=== PATIENT | male | born 1985 ===

== ENCOUNTER 2017-12-23 16:37 | Inpatient (IN) | payer SELFPAY ==
[2017-12-23 16:51] VITALS: BMI 43.5
[2017-12-23 17:33] LABS: ARTERIAL BLOOD GAS HCO3 25.3 mmol/L (21-28); ARTERIAL BLOOD GAS HEMOGLOBIN 14.9 g/dL (11.7-17.4); ARTERIAL BLOOD GAS O2 CAPACITY 20.3 mL/dl (16-24); ARTERIAL BLOOD GAS O2 CONTENT 20.2 ML/dl (15-23); ARTERIAL BLOOD GAS O2 SAT 99.4 % (95-98); ARTERIAL BLOOD GAS PCO2 31 mm/Hg (35-45); ARTERIAL BLOOD GAS PH 7.52 (7.35-7.45); ARTERIAL BLOOD GAS TCO2 26.3 mmol.L (22-28)
[2017-12-23 18:12] LABS: GRAN # 15.28 (1.4-6.5); GRAN % 93.2 % (50.0-68.0); HEMOGLOBIN 14.8 g/dL (14.0-18.0); LYMPH # 0.6 (1.2-3.4); LYMPH % 3.4 % (22.0-35.0); MEAN CELL VOLUME 93.2 fl (80.0-105.0); MEAN CORPUSCULAR HEMOGLOBIN 32.2 pg (25.0-35.0); MEAN CORPUSCULAR HGB CONC 34.6 g/dl (31.0-37.0); MEAN PLATELET VOLUME 10.3 fl (7.0-11.0); MONO # 0.6 (0.1-0.6); MONO % 3.4 % (1.0-6.0); PLATELET COUNT 252 10^3/uL (120.0-450.0); RBC 4.59 10^6/uL (3.5-6.1); WHITE BLOOD COUNT 16.4 10^3/uL (4.5-11.0)
--- NOTE | 2017-12-23 18:23 | RAD ---
Date of service: 12/23/2017 HISTORY: dyspnea COMPARISON: No prior. FINDINGS: LUNGS: No active pulmonary disease. PLEURA: No significant pleural effusion identified, no pneumothorax apparent. CARDIOVASCULAR: No atherosclerotic calcification present Normal. OSSEOUS STRUCTURES: No significant abnormalities. VISUALIZED UPPER ABDOMEN: Normal. OTHER FINDINGS: None. IMPRESSION: No active disease.
--- NOTE | 2017-12-23 18:24 | ED PDOC ---
Arrival/HPI - General Chief Complaint: Medical Clearance Time Seen by Provider: 12/23/17 16:47 Historian: Patient - History of Present Illness Narrative History of Present Illness (Text): 12/23/17 17:06 32 year old male, with past medical history of asthma, presents to the ED complaining of SOB, bilateral upper extremity 5th digit numbness and sweatiness, and bilateral lower extremity cramping since waking up this morning. Patient informs feeling anxious but denies ever having panic attacks or being clinically diagnosed with any psychiatric history. Patient denies any other associated somatic complaints. Patient denies any fever, chills, chest pain, cough, leg swelling, neck pain, back pain or any other complaints. Patient denies any recent trauma/inujury or any recent procedure. Patient denies any recent travel or sick contact. Patient denies any drug use. Time/Duration: 4-6 hours Symptom Onset: Gradual Symptom Course: Unchanged Activities at Onset: Light Context: Home Past Medical History - Provider Review Nursing Documentation Reviewed: Yes - Cardiac Hx Cardiac Disorders: No - Pulmonary Hx Asthma: Yes - Neurological Hx Neurological Disorder: No - HEENT Hx HEENT Disorder: No - Renal Hx Renal Disorder: No - Endocrine/Metabolic Hx Endocrine Disorders: No - Hematological/Oncological Hx Blood Disorders: No - Integumentary Hx Dermatological Disorder: No - Musculoskeletal/Rheumatological Hx Musculoskeletal Disorders: No - Gastrointestinal Hx Gastrointestinal Disorders: No - Genitourinary/Gynecological Hx Genitourinary Disorders: No - Psychiatric Hx Psychophysiologic Disorder: No Hx Substance Use: No Family/Social History - Physician Review Nursing Documentation Reviewed: Yes Family/Social History: Unknown Family HX Smoking Status: Never Smoked Hx Alcohol Use: No Hx Substance Use: No Allergies/Home Meds Allergies/Adverse Reactions: Allergies No Known Allergies Allergy (Verified 12/23/17 16:52) Home Medications: Home Meds Medication Instructions Recorded Confirmed Albuterol/Ipratropium [Duoneb 3 1 ea IH DAILY 12/23/17 12/23/17 MG/3 Ml-0.5 MG/3 Ml 3 Ml] Review of Systems - Physician Review All systems were reviewed & negative as marked: Yes - Review of Systems Respiratory: SOB. absent: Cough Cardiovascular: absent: Chest Pain, Edema Musculoskeletal: absent: Neck Pain Physical Exam - Physical Exam Narrative Physical Exam (Text): 11/15/18 17:06 Constitutional: Anxious appearing. Head: Normocephalic. Atraumatic. Eyes: PERRL. ENT: Moist mucous membranes. Neck: Supple. Cardiovascular: Regular rate. Chest: No tenderness. Respiratory: Clear to auscultation bilaterally. GI: Soft. Nontender. Nondistended. Back: No CVA tenderness. Musculoskeletal: No asymmetrical edema. Skin: No rash. Neurologic: Alert, no focal deficit. Vital Signs Reviewed: Yes Vital Signs Temp Pulse Resp BP Pulse Ox 12/23/17 17:06 98.6 F 116 H 17 144/89 98 Temperature: Afebrile Blood Pressure: Normal Pulse: Tachycardic Respiratory Rate: Normal Appearance: Positive for: Non-Toxic, Comfortable, Other (Anxious-appearing) Pain Distress: None Mental Status: Positive for: Alert and Oriented X 3 Medical Decision Making ED Course and Treatment: 12/23/17 17:06 Impression: 32 year old male presents to the ED complaining of SOB. Plan: -- ABG -- EKG -- Labs -- CXR -- UA Progress Notes: 12/23/17 17:06 EKG reviewed, shows sinus tachycardia at 104 bpm, no ST elevation, normal axis, T-wave inversions laterally. CXR reviewed, shows no acute disease. 12/23/17 20:17 Troponin detectable at 0.04. D dimer negative. WBC elevated. Dr. Perez accepts patient to hospitalist service. ASA administered. - Lab Interpretations Lab Results: 12/23/17 17:52 Lab Results 12/23/17 17:52: WBC 16.4 H, RBC 4.59, Hgb 14.8, Hct 42.8, MCV 93.2, MCH 32.2, MCHC 34.6, RDW 13.0, Plt Count 252, MPV 10.3, Gran % 93.2 H, Lymph % (Auto) 3.4 L, [place] % (Auto) 3.4, Eos % (Auto) 0.0 L, Baso % (Auto) 0.0, Gran # 15.28 H, Lymph # (Auto) 0.6 L, [place] # (Auto) 0.6, Eos # (Auto) 0.0, Baso # (Auto) 0.00, Neutrophils % (Manual) Pending, Lymphocytes % (Manual) Pending, Monocytes % (Manual) Pending 12/23/17 17:00: pCO2 31 L, pO2 82.0, HCO3 25.3, ABG pH 7.52 H, ABG Total CO2 26.3, ABG O2 Saturation 99.4 H, ABG O2 Content 20.2, ABG Base Excess 3.2 H, ABG Hemoglobin 14.9, ABG Carboxyhemoglobin 2.2 H, POC ABG HHb (Measured) 0.6, ABG Me themoglobin 1.1, ABG O2 Capacity 20.3, Hgb O2 Saturation 96.1, FiO2 21.0 - RAD Interpretation Radiology Orders: 12/23/17 17:06 CHEST PORTABLE [RAD] Stat Recreation Facility Attendant: ED Physician - EKG Interpretation Interpreted by ED Physician: Yes Type: 12 lead EKG - Scribe Statement The provider has reviewed the documentation as recorded by the Scribe Manuel Dobbs. All medical record entries made by the Scribe were at my direction and personall y dictated by me. I have reviewed the chart and agree that the record accurately reflects my personal performance of the history, physical exam, medical decision making, and the department course for this patient. I have also personally directed, reviewed, and agree with the discharge instructions and disposition. Disposition/Present on Arrival - Present on Arrival Any Indicators Present on Arrival: No History of DVT/PE: No History of Uncontrolled Diabetes: No Urinary Catheter: No History of Decub. Ulcer: No History Surgical Site Infection Following: None - Disposition Have Diagnosis and Disposition been Completed?: Yes Diagnosis: Dyspnea, Acute electrocardiogram changes Disposition: HOSPITALIZED Disposition Time: 20:18 Patient Plan: Observation, Telemetry Condition: STABLE Forms: Contentful ([place])
[2017-12-23 18:28] LABS: PH,URINE 7.5 (4.7-8.0); URINE BILIRUBIN NEGATIVE (NEGATIVE); URINE BLOOD TRACE-INTACT (NEGATIVE); URINE GLUCOSE (UA) NEGATIVE (NEGATIVE); URINE LEUKOCYTE ESTERASE NEGATIVE Leu/uL (NEGATIVE); URINE PROTEIN TRACE mg/dL (<30 mg/dL); URINE UROBILINOGEN 0.2 E.U./dL (<1 E.U./dL)
[2017-12-23 18:30] LABS: URINE APPEARANCE SL CLOUDY (CLEAR); URINE COLOR YELLOW (YELLOW)
[2017-12-23 18:37] LABS: URINE RBC 0 - 2 /hpf (0-2); URINE WBC NEGATIVE /hpf (0-6)
--- NOTE | 2017-12-23 18:43 | CARD ---
APPROVED REPORT Date of service: 12/23/2017 EKG Measurement Heart [id number] <Conclusion> Sinus tachycardia T wave abnormality, consider inferolateral ischemia Abnormal ECG
[2017-12-23 18:47] LABS: BAND 1 % (0-2); LYMPHOCYTE 1 % (22.0-35.0); MONOCYTE 4 % (1.0-6.0); NEUTROPHIL 94 % (50.0-70.0)
[2017-12-23 18:48] LABS: PLATELET ESTIMATE NORMAL (NORMAL)
[2017-12-23 19:12] LABS: ALB/GLOB RATIO 1.2 (1.1-1.8); ALBUMIN 4.3 g/dL (3.0-4.8); ALT/SGPT 32 U/L (7-56); AST/SGOT 24 U/L (17-59); BLOOD UREA NITROGEN 12 mg/dL (7-21); CALCIUM 9.4 mg/dL (8.4-10.5); GFR NON-AFRICAN AMERICAN > 60
[2017-12-23 19:18] LABS: TROPONIN I 0.04 ng/mL
[2017-12-23 19:41] LABS: BARBITURATES, UR NEGATIVE (NEGATIVE); BENZODIAZEPINES, UR NEGATIVE (NEGATIVE); OPIATES, UR NEGATIVE (NEGATIVE); PHENCYCLIDINE, UR NEGATIVE (NEGATIVE)
[2017-12-23] MEDS ORDERED: Albuterol-Ipratrop 3 mg / 0.5 (3 ml) UD IH PRN (21:17)
--- NOTE | 2017-12-23 21:56 | CP.PCM.HP ---
<Fidel Lynch - Last Filed: 12/23/17 23:29> History of Present Illness - History of Present Illness History of Present Illness: Fidel Lynch PGY1 History and Physical for Dr Perez Pt is a 32 yo male, with a PMH of asthma, who presents to the ED complaining of SOB, bilateral upper extremity 5th digit numbness and sweating, and bilateral lower extremity cramping since waking up at 10am this morning. Pt reports this does not feel like his normal asthma attacks and he does not know if he has ever had a panic attack in the past. Reports anorexia, as well as nausea but denies vomiting. Pt states he tried his albuterol inhaler, but his symptoms were not relieved. These symptoms have been present all day. He reports subjective fever, sweating, heart racing, and mild chest pain on deep breathing, he describes this pain as a tightness. Denies cough or expectoration. Admits to feeling anxious but denies ever having panic attacks or being clinically diagnosed with any psychiatric history. Patient denies any recent travel or sick contact. Patient denies any drug use. A 12 point ROS was obtained and added to the HPI where appropriate. PMH: asthma, never intubated, uses inhaler 1-5xper day, 1-2 times per night PSH: denies SH: Tobacco never, Alcohol 3-4 drinks on the weekends, admits to marijuana in the past 20 years ago FH: Mother- asthma. Father 60 leukemia. Allergies: denies Home meds: albuterol PMD: denies Present on Admission - Present on Admission Any Indicators Present on Admission: No Review of Systems - Review of Systems Review of Systems: a 12 point ROS was obtained and added to the HPI where appropriate Past Patient History - Past Social History Smoking Status: Never Smoked - CARDIAC Hx Cardiac Disorders: No - PULMONARY Hx Asthma: Yes - NEUROLOGICAL Hx Neurological Disorder: No - HEENT Hx HEENT Problems: No - RENAL Hx Chronic Kidney Disease: No - ENDOCRINE/METABOLIC Hx Endocrine Disorders: No - HEMATOLOGICAL/ONCOLOGICAL Hx Blood Disorders: No - INTEGUMENTARY Hx Dermatological Problems: No - MUSCULOSKELETAL/RHEUMATOLOGICAL Hx Musculoskeletal Disorders: No - GASTROINTESTINAL Hx Gastrointestinal Disorders: No - GENITOURINARY/GYNECOLOGICAL Hx Genitourinary Disorders: No - PSYCHIATRIC Hx Psychophysiologic Disorder: No Hx Substance Use: No - SURGICAL HISTORY Hx Surgeries: No Meds Allergies/Adverse Reactions: Allergies Allergy/AdvReac Type Severity Reaction Status Date / Time No Known Allergies Allergy Verified 12/23/17 16:52 Physical Exam - Constitutional Appears: Non-toxic, No Acute Distress - Head Exam Head Exam: ATRAUMATIC, NORMAL INSPECTION, NORMOCEPHALIC - Eye Exam Eye Exam: EOMI - ENT Exam ENT Exam: Mucous Membranes Moist - Neck Exam Neck exam: Positive for: Full Rom, Normal Inspection - Respiratory Exam Respiratory Exam: NORMAL BREATHING PATTERN. absent: Accessory Muscle Use, Wheezes, Respiratory Distress - Cardiovascular Exam Cardiovascular Exam: RRR, +S1, +S2. absent: Diastolic murmur, Systolic Murmur - GI/Abdominal Exam GI & Abdominal Exam: Normal Bowel Sounds, Soft. absent: Tenderness - Extremities Exam Extremities exam: Positive for: full ROM, normal inspection, pedal pulses present. Negative for: calf tenderness, pedal edema - Neurological Exam Neurological exam: Alert, Oriented x3 - Psychiatric Exam Psychiatric exam: Normal Affect, Normal Mood - Skin Skin Exam: Dry, Intact, Warm Results - Vital Signs Recent Vital Signs: Last Vital Signs Temp 98.6 F 12/23/17 17:06 Pulse 116 H 12/23/17 17:06 Resp 17 12/23/17 17:06 BP 144/89 12/23/17 17:06 Pulse Ox 98 12/23/17 17:06 - Labs Result Diagrams: 12/23/17 17:52 12/23/17 18:51 Labs: Laboratory Results - last 24 hr 12/23/17 12/23/17 12/23/17 17:00 17:52 18:13 WBC 16.4 H RBC 4.59 Hgb 14.8 Hct 42.8 MCV 93.2 MCH 32.2 MCHC 34.6 RDW 13.0 Plt Count 252 MPV 10.3 Gran % 93.2 H Lymph % (Auto) 3.4 L [place] % (Auto) 3.4 Eos % (Auto) 0.0 L Baso % (Auto) 0.0 Gran # 15.28 H Lymph # (Auto) 0.6 L [place] # (Auto) 0.6 Eos # (Auto) 0.0 Baso # (Auto) 0.00 Neutrophils % (Manual) 94 H Band Neutrophils % 1 Lymphocytes % (Manual) 1 L Monocytes % (Manual) 4 Platelet Evaluation Normal D-Dimer, Quantitative pCO2 31 L pO2 82.0 HCO3 25.3 ABG pH 7.52 H ABG Total CO2 26.3 ABG O2 Saturation 99.4 H ABG O2 Content 20.2 ABG Base Excess 3.2 H ABG Hemoglobin 14.9 ABG Carboxyhemoglobin 2.2 H POC ABG HHb (Measured) 0.6 ABG Methemoglobin 1.1 ABG O2 Capacity 20.3 Hgb O2 Saturation 96.1 FiO2 21.0 Sodium Potassium Chloride Carbon Dioxide Anion Gap BUN Creatinine Est GFR ( Amer) Est GFR (Non-Af Amer) Random Glucose Calcium Phosphorus Magnesium Total Bilirubin AST ALT Alkaline Phosphatase Total Creatine Kinase Troponin I Total Protein Albumin Globulin Albumin/Globulin Ratio TSH 3rd Generation Urine Color Yellow Urine Appearance Sl cloudy Urine pH 7.5 Ur Specific Center 1.020 Urine Protein Trace H Urine Glucose (UA) Negative Urine Ketones Negative Urine Blood Trace-intact H Urine Nitrate Negative Urine Bilirubin Negative Urine Urobilinogen 0.2 Ur Leukocyte Esterase Negative Urine RBC 0 - 2 Urine WBC Negative Urine Opiates Screen Urine Methadone Screen Ur Barbiturates Screen Ur Phencyclidine Scrn Ur Amphetamines Screen U Benzodiazepines Scrn U Oth Cocaine Metabols U Cannabinoids Screen 12/23/17 12/23/17 12/23/17 18:13 18:51 19:15 WBC RBC Hgb Hct MCV MCH MCHC RDW Plt Count MPV Gran % Lymph % (Auto) [place] % (Auto) Eos % (Auto) Baso % (Auto) Gran # Lymph # (Auto) [place] # (Auto) Eos # (Auto) Baso # (Auto) Neutrophils % (Manual) Band Neutrophils % Lymphocytes % (Manual) Monocytes % (Manual) Platelet Evaluation D-Dimer, Quantitative pCO2 pO2 HCO3 ABG pH ABG Total CO2 ABG O2 Saturation ABG O2 Content ABG Base Excess ABG Hemoglobin ABG Carboxyhemoglobin POC ABG HHb (Measured) ABG Methemoglobin ABG O2 Capacity Hgb O2 Saturation FiO2 Sodium 137 Potassium 4.3 Chloride 97 L Carbon Dioxide 31 Anion Gap 13 BUN 12 Creatinine 1.3 Est GFR ( Amer) > 60 Est GFR (Non-Af Amer) > 60 Random Glucose 116 H Calcium 9.4 Phosphorus 3.5 Magnesium 1.5 L Total Bilirubin 1.1 AST 24 ALT 32 Alkaline Phosphatase 64 Total Creatine Kinase 63 Troponin I 0.04 Total Protein 8.0 Albumin 4.3 Globulin 3.7 Albumin/Globulin Ratio 1.2 TSH 3rd Generation 0.51 Urine Color Urine Appearance Urine pH Ur Specific Center Urine Protein Urine Glucose (UA) Urine Ketones Urine Blood Urine Nitrate Urine Bilirubin Urine Urobilinogen Ur Leukocyte Esterase Urine RBC Urine WBC Urine Opiates Screen Negative Urine Methadone Screen Negative Ur Barbiturates Screen Negative Ur Phencyclidine Scrn Negative Ur Amphetamines Screen Negative U Benzodiazepines Scrn Negative U Oth Cocaine Metabols Negative U Cannabinoids Screen Negative 12/23/17 19:29 WBC RBC Hgb Hct MCV MCH MCHC RDW Plt Count MPV Gran % Lymph % (Auto) [place] % (Auto) Eos % (Auto) Baso % (Auto) Gran # Lymph # (Auto) [place] # (Auto) Eos # (Auto) Baso # (Auto) Neutrophils % (Manual) Band Neutrophils % Lymphocytes % (Manual) Monocytes % (Manual) Platelet Evaluation D-Dimer, Quantitative < 200 pCO2 pO2 HCO3 ABG pH ABG Total CO2 ABG O2 Saturation ABG O2 Content ABG Base Excess ABG Hemoglobin ABG Carboxyhemoglobin POC ABG HHb (Measured) ABG Methemoglobin ABG O2 Capacity Hgb O2 Saturation FiO2 Sodium Potassium Chloride Carbon Dioxide Anion Gap BUN Creatinine Est GFR ( Amer) Est GFR (Non-Af Amer) Random Glucose Calcium Phosphorus Magnesium Total Bilirubin AST ALT Alkaline Phosphatase Total Creatine Kinase Troponin I Total Protein Albumin Globulin Albumin/Globulin Ratio TSH 3rd Generation Urine Color Urine Appearance Urine pH Ur Specific Center Urine Protein Urine Glucose (UA) Urine Ketones Urine Blood Urine Nitrate Urine Bilirubin Urine Urobilinogen Ur Leukocyte Esterase Urine RBC Urine WBC Urine Opiates Screen Urine Methadone Screen Ur Barbiturates Screen Ur Phencyclidine Scrn Ur Amphetamines Screen U Benzodiazepines Scrn U Oth Cocaine Metabols U Cannabinoids Screen Assessment & Plan - Assessment and Plan (Free Text) Assessment: Pt is a 32 yo male, with a PMH of asthma, who presents to the ED complaining of SOB, bilateral upper extremity 5th digit numbness and sweating. Numbness could be secondary to hyperventilation which is inferred from ABGs. Bilateral lower extremity cramping which could be a symptom of low mg. Pt reports this SOB does not feel like his normal asthma attacks and he does not know if he has ever had a panic attack in the past. Pt has chest pain (unspecified), asthma, low mg, and leukocytosis. Plan: Chest pain, mild SOB - ACS rule out - likely due to anxiety or asthma - HA1C - Lipid panel in AM - Trend troponin - ASA given in ED - O2 2L - Trend EKG - ECHO - cardio consulted, Dr Alexander Leukocytosis - WBC 16.4 - VBG shock panel - blood cultures - urine cultures - rectal temp - procal - rocephin HypoMg - replete PRN Asthma - duonebs PRN/SHIVANI Ppx - heparin - protonix Pt seen, examined, assessment and plan discussed with Dr Ana Lynch PGY1, Internal Medicine Resident - Date & Time Date: 12/23/17 Time: 21:57 <Chio Perez - Last Filed: 12/23/17 23:58> Results - Vital Signs Recent Vital Signs: Last Vital Signs Temp 98.6 F 12/23/17 17:06 Pulse 101 H 12/23/17 23:19 Resp 18 12/23/17 23:19 BP 137/84 12/23/17 23:19 Pulse Ox 100 12/23/17 23:19 - Labs Result Diagrams: 12/23/17 17:52 12/23/17 18:51 Labs: Laboratory Results - last 24 hr 12/23/17 12/23/17 12/23/17 17:00 17:52 18:13 WBC 16.4 H RBC 4.59 Hgb 14.8 Hct 42.8 MCV 93.2 MCH 32.2 MCHC 34.6 RDW 13.0 Plt Count 252 MPV 10.3 Gran % 93.2 H Lymph % (Auto) 3.4 L [place] % (Auto) 3.4 Eos % (Auto) 0.0 L Baso % (Auto) 0.0 Gran # 15.28 H Lymph # (Auto) 0.6 L [place] # (Auto) 0.6 Eos # (Auto) 0.0 Baso # (Auto) 0.00 Neutrophils % (Manual) 94 H Band Neutrophils % 1 Lymphocytes % (Manual) 1 L Monocytes % (Manual) 4 Platelet Evaluation Normal D-Dimer, Quantitative pCO2 31 L pO2 82.0 HCO3 25.3 ABG pH 7.52 H ABG Total CO2 26.3 ABG O2 Saturation 99.4 H ABG O2 Content 20.2 ABG Base Excess 3.2 H ABG Hemoglobin 14.9 ABG Carboxyhemoglobin 2.2 H POC ABG HHb (Measured) 0.6 ABG Methemoglobin 1.1 ABG O2 Capacity 20.3 Hgb O2 Saturation 96.1 FiO2 21.0 Sodium Potassium Chloride Carbon Dioxide Anion Gap BUN Creatinine Est GFR ( Amer) Est GFR (Non-Af Amer) Random Glucose Calcium Phosphorus Magnesium Total Bilirubin AST ALT Alkaline Phosphatase Total Creatine Kinase Troponin I Total Protein Albumin Globulin Albumin/Globulin Ratio TSH 3rd Generation Urine Color Yellow Urine Appearance Sl cloudy Urine pH 7.5 Ur Specific Center 1.020 Urine Protein Trace H Urine Glucose (UA) Negative Urine Ketones Negative Urine Blood Trace-intact H Urine Nitrate Negative Urine Bilirubin Negative Urine Urobilinogen 0.2 Ur Leukocyte Esterase Negative Urine RBC 0 - 2 Urine WBC Negative Urine Opiates Screen Urine Methadone Screen Ur Barbiturates Screen Ur Phencyclidine Scrn Ur Amphetamines Screen U Benzodiazepines Scrn U Oth Cocaine Metabols U Cannabinoids Screen 12/23/17 12/23/17 12/23/17 18:13 18:51 19:15 WBC RBC Hgb Hct MCV MCH MCHC RDW Plt Count MPV Gran % Lymph % (Auto) [place] % (Auto) Eos % (Auto) Baso % (Auto) Gran # Lymph # (Auto) [place] # (Auto) Eos # (Auto) Baso # (Auto) Neutrophils % (Manual) Band Neutrophils % Lymphocytes % (Manual) Monocytes % (Manual) Platelet Evaluation D-Dimer, Quantitative pCO2 pO2 HCO3 ABG pH ABG Total CO2 ABG O2 Saturation ABG O2 Content ABG Base Excess ABG Hemoglobin ABG Carboxyhemoglobin POC ABG HHb (Measured) ABG Methemoglobin ABG O2 Capacity Hgb O2 Saturation FiO2 Sodium 137 Potassium 4.3 Chloride 97 L Carbon Dioxide 31 Anion Gap 13 BUN 12 Creatinine 1.3 Est GFR ( Amer) > 60 Est GFR (Non-Af Amer) > 60 Random Glucose 116 H Calcium 9.4 Phosphorus 3.5 Magnesium 1.5 L Total Bilirubin 1.1 AST 24 ALT 32 Alkaline Phosphatase 64 Total Creatine Kinase 63 Troponin I 0.04 Total Protein 8.0 Albumin 4.3 Globulin 3.7 Albumin/Globulin Ratio 1.2 TSH 3rd Generation 0.51 Urine Color Urine Appearance Urine pH Ur Specific Center Urine Protein Urine Glucose (UA) Urine Ketones Urine Blood Urine Nitrate Urine Bilirubin Urine Urobilinogen Ur Leukocyte Esterase Urine RBC Urine WBC Urine Opiates Screen Negative Urine Methadone Screen Negative Ur Barbiturates Screen Negative Ur Phencyclidine Scrn Negative Ur Amphetamines Screen Negative U Benzodiazepines Scrn Negative U Oth Cocaine Metabols Negative U Cannabinoids Screen Negative 12/23/17 19:29 WBC RBC Hgb Hct MCV MCH MCHC RDW Plt Count MPV Gran % Lymph % (Auto) [place] % (Auto) Eos % (Auto) Baso % (Auto) Gran # Lymph # (Auto) [place] # (Auto) Eos # (Auto) Baso # (Auto) Neutrophils % (Manual) Band Neutrophils % Lymphocytes % (Manual) Monocytes % (Manual) Platelet Evaluation D-Dimer, Quantitative < 200 pCO2 pO2 HCO3 ABG pH ABG Total CO2 ABG O2 Saturation ABG O2 Content ABG Base Excess ABG Hemoglobin ABG Carboxyhemoglobin POC ABG HHb (Measured) ABG Methemoglobin ABG O2 Capacity Hgb O2 Saturation FiO2 Sodium Potassium Chloride Carbon Dioxide Anion Gap BUN Creatinine Est GFR ( Amer) Est GFR (Non-Af Amer) Random Glucose Calcium Phosphorus Magnesium Total Bilirubin AST ALT Alkaline Phosphatase Total Creatine Kinase Troponin I Total Protein Albumin Globulin Albumin/Globulin Ratio TSH 3rd Generation Urine Color Urine Appearance Urine pH Ur Specific Center Urine Protein Urine Glucose (UA) Urine Ketones Urine Blood Urine Nitrate Urine Bilirubin Urine Urobilinogen Ur Leukocyte Esterase Urine RBC Urine WBC Urine Opiates Screen Urine Methadone Screen Ur Barbiturates Screen Ur Phencyclidine Scrn Ur Amphetamines Screen U Benzodiazepines Scrn U Oth Cocaine Metabols U Cannabinoids Screen Attending/Attestation - Attestation I have personally seen and examined this patient.: Yes I have fully participated in the care of the patient.: Yes I have reviewed all pertinent clinical information: Yes Notes (Text): 12/23/17 23:48 Pt seen with the resident by the bedside. Case discussed in detail. Agree with examination findings,documentation,assessment and plan of treatment. Note: Since pt stated he had a fever before he came here,has leucocytosis, rectal temp was ordered. He refused rectal temp. Repeat oral temp was reported 100.4 Septic work up was ordered. Rocephin was ordered empirically.
[2017-12-23] MEDS ORDERED: Magnesium Sulfate 1 gm in D5W 1 GM/100 ML BAG IVPB ONE (22:04)
[2017-12-23] MEDS: Albuterol-Ipratrop 3 mg / 0.5 (3 ml) UD IH SCH (22:44)
[2017-12-24] MEDS: cefTRIAXone 1 gm 1 GM/100 ML BAG IVPB SCH ×2 (00:24→09:31)
[2017-12-24 00:34] LABS: VENOUS BLOOD GAS BASE EXCESS 8.5 mmol/L (0.0-2.0); VENOUS BLOOD GAS PO2 19 mm/Hg (30-55); VENOUS BLOOD PH 7.43 (7.32-7.43)
[2017-12-24] MEDS: Albuterol-Ipratrop 3 mg / 0.5 (3 ml) UD IH SCH ×3 (01:09→07:28)
[2017-12-24 06:55] LABS: GRAN # 8.67 (1.4-6.5); GRAN % 85.8 % (50.0-68.0); HEMOGLOBIN 13.9 g/dL (14.0-18.0); LYMPH # 0.9 (1.2-3.4); LYMPH % 8.4 % (22.0-35.0); MEAN CELL VOLUME 93.8 fl (80.0-105.0); MEAN CORPUSCULAR HEMOGLOBIN 32.2 pg (25.0-35.0); MEAN CORPUSCULAR HGB CONC 34.3 g/dl (31.0-37.0); MEAN PLATELET VOLUME 9.8 fl (7.0-11.0); MONO # 0.6 (0.1-0.6); MONO % 5.8 % (1.0-6.0); RBC 4.32 10^6/uL (3.5-6.1); RED CELL DISTRIBUTION WIDTH 13.1 % (11.5-14.5); WHITE BLOOD COUNT 10.1 10^3/uL (4.5-11.0)
[2017-12-24 07:26] LABS: LDL CHOLESTEROL 114 mg/dL (0-129)
[2017-12-24 07:27] LABS: TROPONIN I 0.03 ng/mL
[2017-12-24 07:46] LABS: ALB/GLOB RATIO 1.1 (1.1-1.8); ALBUMIN 3.9 g/dL (3.0-4.8); ALT/SGPT 32 U/L (7-56); AST/SGOT 25 U/L (17-59); BLOOD UREA NITROGEN 15 mg/dL (7-21); GFR NON-AFRICAN AMERICAN > 60; HDL CHOLESTEROL 42 mg/dL (29-60)
[2017-12-24] MEDS: Pantoprazole 40 mg EC Tab PO SCH (09:31)
[2017-12-24] MEDS: Fluticasone Nasal 50 mcg/Spray NS SCH (13:35)
--- NOTE | 2017-12-24 15:54 | CARD ---
APPROVED REPORT Date of service: 12/24/2017 EXAM: Two-dimensional and M-mode echocardiogram with Doppler and color Doppler. INDICATION Chest Pain 2D DIMENSIONS Left Atrium (2D)3.8 (1.6-4.0cm)IVSd1.3 (0.7-1.1cm) LVDd4.7 (3.9-5.9cm)PWd1.3 (0.7-1.1cm) LVDs3.1 (2.5-4.0cm)FS (%) 33.5 % LVEF (%)62.0 (>50%) M-Mode DIMENSIONS Aortic Root3.40 (2.2-3.7cm)Aortic Cusp Exc.2.00 (1.5-2.0cm) Aortic Valve AoV Peak Ssfoekna874.0cm/Kayden Peak GR.6mmHg Mitral Valve MV E Ykvywwzc06.2cm/sMV A Lrdeackq18.5cm/sE/A ratio1.1 TDI E/Lateral E'0.0E/Medial E'0.0 Tricuspid Valve TR Peak [id number] [id number] Peak Gr.14mmHg [id number] LEFT VENTRICLE The left ventricle is normal size. There is borderline concentric left ventricular hypertrophy. The left ventricular function is normal. The left ventricular ejection fraction is within the normal range. There is normal LV segmental wall motion. Transmitral Doppler flow pattern is Grade I-abnormal relaxation pattern. RIGHT VENTRICLE The right ventricle is normal size. There is normal right ventricular wall thickness. The right ventricular systolic function is normal. ATRIA The left atrium size is normal. The right atrium size is normal. AORTIC VALVE The aortic valve is normal in structure. There is trace aortic regurgitation. There is no aortic valvular stenosis. MITRAL VALVE The mitral valve is normal in structure. There is no mitral valve regurgitation noted. There is no mitral valve stenosis. TRICUSPID VALVE The tricuspid valve is normal in structure. There is trace tricuspid regurgitation. There is no tricuspid valve stenosis. PULMONIC VALVE The pulmonary valve is normal in structure. There is no pulmonic valvular regurgitation. GREAT VESSELS The aortic root is normal in size. PERICARDIAL EFFUSION There is a trace pericardial effusion. <Conclusion> The left ventricle is normal size. There is borderline concentric left ventricular hypertrophy. The left ventricular function is normal. The left ventricular ejection fraction is within the normal range. There is normal LV segmental wall motion. Transmitral Doppler flow pattern is Grade I-abnormal relaxation pattern.
--- NOTE | 2017-12-24 17:03 | CP.PCM.PN ---
<Mayda Alcala - Last Filed: 12/24/17 16:56> Subjective - Date & Time of Evaluation Date of Evaluation: 12/24/17 Time of Evaluation: 10:00 - Subjective Subjective: Mayda Alcala, PGY2, Medicine Progress Note for Dr Mcbride: Patient seen and examined at bedside. Overnight, patient had a temp of 100.4F, with chills. This AM, patient states that he has a headache, relieved partially with tylenol. Patient reports right frontal headache and stuffy nose. States that she chest tightness, sob has resolved. Also states that his lower thigh cramping and upper extremity 5th digit tingling has resolved this AM. States that his Denies cough, sputum, runny nose. Patient states that she suffers from sinus pressure, but currently denies it. Denies urinary symptoms, chest pain, sob, neck pain, diaphoresis, nausea, vomiting, diarrhea, leg swelling. Objective - Vital Signs/Intake and Output Vital Signs (last 24 hours): Temp Pulse Resp BP Pulse Ox 98 F 92 H 20 143/91 H 97 12/24/17 12:00 12/24/17 16:00 12/24/17 12:00 12/24/17 12:00 12/24/17 09:55 Intake and Output: 12/24/17 12/24/17 06:59 18:59 Intake Total 640 Balance 640 - Medications Medications: Current Medications Acetaminophen (Tylenol 325mg Tab) 650 mg PO Q6H PRN PRN Reason: Headache Last Admin: 12/24/17 09:33 Dose: 650 mg Aspirin (Ecotrin) 81 mg PO DAILY [facility] Last Admin: 12/24/17 09:31 Dose: 81 mg Fluticasone Propionate (Flonase) 1 actuation NS DAILY [facility] Last Admin: 12/24/17 13:35 Dose: 1 applic Heparin Sodium (Porcine) (Heparin) 5,000 units SC Q12 [facility]; Protocol Last Admin: 12/24/17 09:31 Dose: 5,000 units Ceftriaxone Sodium (Rocephin 1 Gram Ivpb) 1 gm in 100 mls @ 100 mls/hr IVPB DAILY [facility]; Protocol Last Admin: 12/24/17 09:31 Dose: 100 mls/hr Pantoprazole Sodium (Protonix Ec Tab) 40 mg PO 0600 [facility] Last Admin: 12/24/17 09:31 Dose: 40 mg - Labs Labs: 12/24/17 06:20 12/24/17 06:20 - Constitutional Appears: Non-toxic, No Acute Distress - Head Exam Head Exam: ATRAUMATIC, NORMOCEPHALIC - Eye Exam Eye Exam: EOMI, PERRL. absent: Conjunctival injection, Nystagmus, Scleral icterus Pupil Exam: NORMAL ACCOMODATION, PERRL. absent: Fixed, Irregular, Miosis, Unequal - ENT Exam ENT Exam: Mucous Membranes Dry Additional comments: no sinus pressure noted - Neck Exam Neck Exam: Full ROM - Respiratory Exam Respiratory Exam: Clear to Ausculation Bilateral, NORMAL BREATHING PATTERN. absent: Accessory Muscle Use, Rhonchi, Wheezes, Respiratory Distress, Stridor - Cardiovascular Exam Cardiovascular Exam: RRR, +S1, +S2. absent: Murmur - GI/Abdominal Exam GI & Abdominal Exam: Soft, Normal Bowel Sounds. absent: Distended, Guarding, Rigid, Tenderness, Mass, Organomegaly, Rebound - Extremities Exam Extremities Exam: Full ROM, Normal Inspection. absent: Calf Tenderness, Pedal Edema - Back Exam Back Exam: NORMAL INSPECTION. absent: CVA tenderness (L), CVA tenderness (R) - Neurological Exam Neurological Exam: Alert, Awake, Oriented x3 - Psychiatric Exam Psychiatric exam: Agitated - Skin Skin Exam: Diaphoretic, Normal Color, Warm Assessment and Plan - Assessment and Plan (Free Text) Assessment: 32 year old male with PMH asthma, presents for sob, chest tightness, bilateral upper extermity numbness in 5th digit, and bilateral lower thigh weakness/numbness, found to have met SIRS criteria: Chest tightness: r/o ACS, vs panic attack - trop 0.04-0.04-0.03. - EKG shows HR 104, Sinus tachycardia, T wave inversions in leads V5-V6, lead II. - Echo shows EF 62%. borderline concentric LVH. Grade 1 diastolic dysfunction. - Cardiology Dr Alexander consulted. F/u recs - currently, the symptoms have resolved. - UDS neg - TSH normal, A1C 5.1, lipid panel reviewed - LDL 114 - tele monitoring - STEFF 0 SIRS: 2/2 likely viral (flu) vs bacterial etiology - ED: tachycardic, leukocytosis, fever 100.4F - Given rocephin - procal high - on rocephin. - ID consulted. F/u recs. - f/u urine, blood cultures, legionella, mycoplasma, strep pneumo - monitor Headache: 2/2 sinus pressure - no neck rigidity - flonase nasal spray - tylenol - will re-asses B/l 5th digit tingling: - TSH normal - F/u b12, folate, vitamin D - currently resolved. Hx of Asthma: - Xopenex prn PPX: heparin sq, protonix HHD Pt seen, examined, assessment and plan discussed with attending, Dr Mcbride. <Anita Mcbride - Last Filed: 12/25/17 19:07> Objective - Vital Signs/Intake and Output Vital Signs (last 24 hours): Temp Pulse Resp BP Pulse Ox 97.9 F 94 H 20 141/91 H 96 12/25/17 12:00 12/25/17 18:00 12/25/17 12:00 12/25/17 12:00 12/25/17 06:00 Intake and Output: 12/25/17 12/26/17 18:59 06:59 Intake Total 2052 Balance 2052 - Medications Medications: Current Medications Acetaminophen (Tylenol 325mg Tab) 650 mg PO Q6H PRN PRN Reason: Headache Last Admin: 12/25/17 18:08 Dose: 650 mg Aspirin (Ecotrin) 81 mg PO DAILY [facility] Last Admin: 12/25/17 11:17 Dose: 81 mg Fluticasone Propionate (Flonase) 1 actuation NS DAILY [facility] Last Admin: 12/25/17 11:17 Dose: 1 applic Heparin Sodium (Porcine) (Heparin) 5,000 units SC Q12 [facility]; Protocol Last Admin: 12/25/17 11:17 Dose: 5,000 units Ampicillin Sodium/Sulbactam (Sodium 3 gm/ Sodium Chloride) 100 mls @ 200 mls/hr IVPB Q6 [facility]; Protocol Last Admin: 12/25/17 18:12 Dose: 200 mls/hr Doxycycline Hyclate 100 mg/ (Sodium Chloride) 100 mls @ 100 mls/hr IVPB Q12 [facility]; Protocol Last Admin: 12/25/17 14:30 Dose: 100 mls/hr Levalbuterol HCl (Xopenex) 1.25 mg IH [id number] PRN PRN Reason: Shortness of Breath Pantoprazole Sodium (Protonix Ec Tab) 40 mg PO 0600 [facility] Last Admin: 12/25/17 05:49 Dose: 40 mg - Labs Labs: 12/25/17 06:30 12/25/17 06:30 Attending/Attestation - Attestation I have personally seen and examined this patient.: Yes I have fully participated in the care of the patient.: Yes I have reviewed all pertinent clinical information, including history, physical exam and plan: Yes
[2017-12-24 17:21] LABS: FOLATE 7.8 ng/mL
[2017-12-24] MEDS ORDERED: Albuterol 0.042% Inhal Sol (1.25 mg/3 mL) UD IH PRN (17:35)
[2017-12-24] MEDS ORDERED: Levalbuterol 1.25 MG/3 ML Inhal Soln UD IH PRN (17:36)
--- NOTE | 2017-12-24 19:15 | CARD ---
APPROVED REPORT Date of service: 12/24/2017 EKG Measurement Heart [id number] MI [id number] [id number] <Conclusion> Normal sinus rhythm Minimal voltage criteria for LVH, may be normal variant T wave abnormality, consider inferolateral ischemia Abnormal ECG
--- NOTE | 2017-12-24 23:50 | CON ---
DATE OF CONSULTATION: 12/24/2017 CARDIOLOGY CONSULTATION REASON FOR CONSULTATION: Abnormal EKG. HISTORY OF PRESENT ILLNESS: The patient is a 32-year-old morbidly obese male, who presented because of shortness of breath with bilateral hand numbness and bilateral feet cold sensation. The patient is unaware of any prior cardiac history and at this time, he is chest pain free. SOCIAL HISTORY: Nonsmoker. He works as a prescription clerk. CURRENT MEDICATIONS: Aspirin 81 mg once a day, Flonase 1 spray daily, subcutaneous heparin 5000 units every 12 hours, Protonix 40 mg once a day, Rocephin 1 gm intravenously daily, and Xopenex inhaler every 6 hours p.r.n. PAST MEDICAL HISTORY: Bronchial asthma. PHYSICAL EXAMINATION GENERAL: The patient is a young middle-aged male who does not appear to be in acute distress. VITAL SIGNS: Blood pressure 143/91, heart rate 86, temperature 98, respirations 20. HEENT: Normocephalic. CHEST: Clear. HEART: S1, S2 regular. ABDOMEN: Soft. EXTREMITIES: No edema. LABORATORIES: Today's hemoglobin and hematocrit 13.9 and 48.5, white count and platelet count are within normal limits. D-dimer is below 200. SMA-7 is within normal limits, except glucose of 120. Troponin 0.04, 0.04, and 0.03. Urine drug screen is negative. EKG revealed sinus tachycardia at the rate of 104. LVH with repolarization changes. However, inferolateral ischemia cannot be completely excluded. Echocardiographic study, borderline concentric LVH with normal systolic function, normal segmental wall motion, and grade 1 abnormal relaxation pattern. ASSESSMENT: 1. Chest pain. Troponin is in indeterminate range. 2. Morbid obesity. RECOMMENDATIONS: Continue on aspirin 81 mg once a day, subcutaneous heparin 5000 units every 12 hours, IV Rocephin 1 gm daily. Obtain as well as head CT scan without contrast. If imaging is negative, cardiac catheterization will be considered. The procedure and its risks were explained to the patient; however, the patient stated that he will think about it. Luke Alexander MD [facility] # [id number]
[2017-12-25] MEDS: Pantoprazole 40 mg EC Tab PO SCH (05:49)
[2017-12-25 07:21] LABS: BASO # 0.01 K/mm3 (0.0-2.0); BASO % 0.1 % (0.0-3.0); EOS # 0.1 (0.0-0.7); EOS % 0.9 % (1.5-5.0); GRAN # 6.58 (1.4-6.5); HEMOGLOBIN 13.5 g/dL (14.0-18.0); LYMPH # 1.6 (1.2-3.4); LYMPH % 17.5 % (22.0-35.0); MEAN CORPUSCULAR HEMOGLOBIN 31.9 pg (25.0-35.0); MEAN CORPUSCULAR HGB CONC 33.6 g/dl (31.0-37.0); MEAN PLATELET VOLUME 9.8 fl (7.0-11.0); MONO # 0.7 (0.1-0.6); MONO % 7.5 % (1.0-6.0); RBC 4.23 10^6/uL (3.5-6.1); RED CELL DISTRIBUTION WIDTH 13.1 % (11.5-14.5); WHITE BLOOD COUNT 8.9 10^3/uL (4.5-11.0)
[2017-12-25 07:43] LABS: ALT/SGPT 32 U/L (7-56); AST/SGOT 32 U/L (17-59); BLOOD UREA NITROGEN 14 mg/dL (7-21); CALCIUM 8.8 mg/dL (8.4-10.5); GFR NON-AFRICAN AMERICAN > 60
[2017-12-25] MEDS ORDERED: Vancomycin 1gm in NS 250ml 1 GM/250 ML BAG IVPB SCH (11:00)
[2017-12-25] MEDS: Fluticasone Nasal 50 mcg/Spray NS SCH (11:17)
--- NOTE | 2017-12-25 13:09 | CP.PCM.CON ---
History of Present Illness - History of Present Illness History of Present Illness: 32 year old male with PMH of asthma, morbid obesity with BMI 46 came in to [facility] initially for bilateral 5th digit numbness which has resolved currently. He is now complaining of right lower extremity pain associated with erythematous rash which just came out yesterday. He was also having low grade fever yesterday. He denies headache or dizziness, no nausea or vomiting, no diarrhea, no abdominal pain, no dysuria, no chest pain or palpitations, no sore throat, no cough or rhinorrhea. The patient denies soaking in bathtubs. He does have contact with dogs but denies animal bites or bug bites and has not traveled to wooded areas in the past 3 months. He is not complaining of back pain. Infectious diseases consult is requested to further evaluate and manage. Review of Systems - Review of Systems All systems: reviewed and no additional remarkable complaints except (as per HPI) Past Patient History - Past Social History Smoking Status: Unknown If Ever Smoked - CARDIAC Hx Cardiac Disorders: No - PULMONARY Hx Asthma: Yes - NEUROLOGICAL Hx Neurological Disorder: No - HEENT Hx HEENT Problems: No - RENAL Hx Chronic Kidney Disease: No - ENDOCRINE/METABOLIC Hx Endocrine Disorders: No - HEMATOLOGICAL/ONCOLOGICAL Hx Blood Disorders: No - INTEGUMENTARY Hx Dermatological Problems: No - MUSCULOSKELETAL/RHEUMATOLOGICAL Hx Musculoskeletal Disorders: No Hx Falls: No - GASTROINTESTINAL Hx Gastrointestinal Disorders: No - GENITOURINARY/GYNECOLOGICAL Hx Genitourinary Disorders: No - PSYCHIATRIC Hx Psychophysiologic Disorder: No - SURGICAL HISTORY Hx Surgeries: No Meds Allergies/Adverse Reactions: Allergies Allergy/AdvReac Type Severity Reaction Status Date / Time No Known Allergies Allergy Verified 12/23/17 16:52 - Medications Medications: Current Medications Acetaminophen (Tylenol 325mg Tab) 650 mg PO Q6H PRN PRN Reason: Headache Last Admin: 12/24/17 09:33 Dose: 650 mg Aspirin (Ecotrin) 81 mg PO DAILY [facility] Last Admin: 12/24/17 09:31 Dose: 81 mg Fluticasone Propionate (Flonase) 1 actuation NS DAILY [facility] Last Admin: 12/24/17 13:35 Dose: 1 applic Heparin Sodium (Porcine) (Heparin) 5,000 units SC Q12 [facility]; Protocol Last Admin: 12/24/17 09:31 Dose: 5,000 units Ceftriaxone Sodium (Rocephin 1 Gram Ivpb) 1 gm in 100 mls @ 100 mls/hr IVPB DAILY [facility]; Protocol Last Admin: 12/24/17 09:31 Dose: 100 mls/hr Levalbuterol HCl (Xopenex) 1.25 mg IH [id number] PRN PRN Reason: Shortness of Breath Pantoprazole Sodium (Protonix Ec Tab) 40 mg PO 0600 [facility] Last Admin: 12/24/17 09:31 Dose: 40 mg Physical Exam - Constitutional Appears: Chronically Ill - Head Exam Head Exam: NORMAL INSPECTION - Neck Exam Neck exam: Negative for: Meningismus - Respiratory Exam Respiratory Exam: Decreased Breath Sounds - Cardiovascular Exam Cardiovascular Exam: +S1, +S2 - GI/Abdominal Exam GI & Abdominal Exam: Soft. absent: Tenderness - Extremities Exam Additional comments: right leg with erythema on the anterior portion with mild tenderness, no pus, bleeding or dishcarge, no fluctuance Results - Vital Signs Recent Vital Signs: Last Vital Signs Temp 99.8 F H 12/24/17 18:00 Pulse 93 H 12/24/17 18:00 Resp 19 12/24/17 18:00 BP 140/96 H 12/24/17 18:00 Pulse Ox 97 12/24/17 09:55 - Labs Result Diagrams: 12/25/17 06:30 12/25/17 06:30 Labs: Laboratory Results - last 24 hr 12/23/17 12/23/17 12/23/17 17:52 18:13 18:13 WBC RBC Hgb Hct MCV MCH MCHC RDW Plt Count MPV Gran % Lymph % (Auto) [place] % (Auto) Eos % (Auto) Baso % (Auto) Gran # Lymph # (Auto) [place] # (Auto) Eos # (Auto) Baso # (Auto) Neutrophils % (Manual) 94 H Band Neutrophils % 1 Lymphocytes % (Manual) 1 L Monocytes % (Manual) 4 Platelet Evaluation Normal D-Dimer, Quantitative pO2 VBG pH VBG pCO2 VBG HCO3 VBG Total CO2 VBG O2 Sat (Calc) VBG Base Excess VBG Potassium Glucose Lactate FiO2 Sodium Potassium Chloride Carbon Dioxide Anion Gap BUN Creatinine Est GFR ( Amer) Est GFR (Non-Af Amer) Random Glucose Hemoglobin A1c Calcium Phosphorus Magnesium Total Bilirubin AST ALT Alkaline Phosphatase Total Creatine Kinase Troponin I Total Protein Albumin Globulin Albumin/Globulin Ratio Triglycerides Cholesterol LDL Cholesterol Direct HDL Cholesterol Vitamin B12 25-OH Vitamin D Total Folate Procalcitonin TSH 3rd Generation Venous Blood Potassium Urine Color Yellow Urine Appearance Sl cloudy Urine pH 7.5 Ur Specific Thompson 1.020 Urine Protein Trace H Urine Glucose (UA) Negative Urine Ketones Negative Urine Blood Trace-intact H Urine Nitrate Negative Urine Bilirubin Negative Urine Urobilinogen 0.2 Ur Leukocyte Esterase Negative Urine RBC 0 - 2 Urine WBC Negative Urine Opiates Screen Negative Urine Methadone Screen Negative Ur Barbiturates Screen Negative Ur Phencyclidine Scrn Negative Ur Amphetamines Screen Negative U Benzodiazepines Scrn Negative U Oth Cocaine Metabols Negative U Cannabinoids Screen Negative 12/23/17 12/23/17 12/23/17 18:51 19:15 19:29 WBC RBC Hgb Hct MCV MCH MCHC RDW Plt Count MPV Gran % Lymph % (Auto) [place] % (Auto) Eos % (Auto) Baso % (Auto) Gran # Lymph # (Auto) [place] # (Auto) Eos # (Auto) Baso # (Auto) Neutrophils % (Manual) Band Neutrophils % Lymphocytes % (Manual) Monocytes % (Manual) Platelet Evaluation D-Dimer, Quantitative < 200 pO2 VBG pH VBG pCO2 VBG HCO3 VBG Total CO2 VBG O2 Sat (Calc) VBG Base Excess VBG Potassium Glucose Lactate FiO2 Sodium 137 Potassium 4.3 Chloride 97 L Carbon Dioxide 31 Anion Gap 13 BUN 12 Creatinine 1.3 Est GFR ( Amer) > 60 Est GFR (Non-Af Amer) > 60 Random Glucose 116 H Hemoglobin A1c Calcium 9.4 Phosphorus 3.5 Magnesium 1.5 L Total Bilirubin 1.1 AST 24 ALT 32 Alkaline Phosphatase 64 Total Creatine Kinase 63 Troponin I 0.04 Total Protein 8.0 Albumin 4.3 Globulin 3.7 Albumin/Globulin Ratio 1.2 Triglycerides Cholesterol LDL Cholesterol Direct HDL Cholesterol Vitamin B12 25-OH Vitamin D Total Folate Procalcitonin TSH 3rd Generation 0.51 Venous Blood Potassium Urine Color Urine Appearance Urine pH Ur Specific [place] Urine Protein Urine Glucose (UA) Urine Ketones Urine Blood Urine Nitrate Urine Bilirubin Urine Urobilinogen Ur Leukocyte Esterase Urine RBC Urine WBC Urine Opiates Screen Urine Methadone Screen Ur Barbiturates Screen Ur Phencyclidine Scrn Ur Amphetamines Screen U Benzodiazepines Scrn U Oth Cocaine Metabols U Cannabinoids Screen 12/24/17 12/24/17 12/24/17 00:17 00:17 00:49 WBC RBC Hgb Hct MCV MCH MCHC RDW Plt Count MPV Gran % Lymph % (Auto) [place] % (Auto) Eos % (Auto) Baso % (Auto) Gran # Lymph # (Auto) [place] # (Auto) Eos # (Auto) Baso # (Auto) Neutrophils % (Manual) Band Neutrophils % Lymphocytes % (Manual) Monocytes % (Manual) Platelet Evaluation D-Dimer, Quantitative pO2 19 L VBG pH 7.43 VBG pCO2 52.0 VBG HCO3 34.5 H VBG Total CO2 36.1 H VBG O2 Sat (Calc) 32.8 L VBG Base Excess 8.5 H VBG Potassium 3.9 Glucose 123 H Lactate 1.6 FiO2 21.0 Sodium 137.0 Potassium Chloride 97.0 L Carbon Dioxide Anion Gap BUN Creatinine Est GFR ( Amer) Est GFR (Non-Af Amer) Random Glucose Hemoglobin A1c Calcium Phosphorus Magnesium Total Bilirubin AST ALT Alkaline Phosphatase Total Creatine Kinase Troponin I 0.04 Total Protein Albumin Globulin Albumin/Globulin Ratio Triglycerides Cholesterol LDL Cholesterol Direct HDL Cholesterol Vitamin B12 25-OH Vitamin D Total Folate Procalcitonin 3.53 H TSH 3rd Generation Venous Blood Potassium 3.9 Urine Color Urine Appearance Urine pH Ur Specific Thompson Urine Protein Urine Glucose (UA) Urine Ketones Urine Blood Urine Nitrate Urine Bilirubin Urine Urobilinogen Ur Leukocyte Esterase Urine RBC Urine WBC Urine Opiates Screen Urine Methadone Screen Ur Barbiturates Screen Ur Phencyclidine Scrn Ur Amphetamines Screen U Benzodiazepines Scrn U Oth Cocaine Metabols U Cannabinoids Screen 12/24/17 12/24/17 12/24/17 06:20 06:20 06:20 WBC 10.1 D RBC 4.32 Hgb 13.9 L Hct 40.5 L MCV 93.8 MCH 32.2 MCHC 34.3 RDW 13.1 Plt Count 205 MPV 9.8 Gran % 85.8 H Lymph % (Auto) 8.4 L [place] % (Auto) 5.8 Eos % (Auto) 0.0 L Baso % (Auto) 0.0 Gran # 8.67 H Lymph # (Auto) 0.9 L [place] # (Auto) 0.6 Eos # (Auto) 0.0 Baso # (Auto) 0.00 Neutrophils % (Manual) Band Neutrophils % Lymphocytes % (Manual) Monocytes % (Manual) Platelet Evaluation D-Dimer, Quantitative pO2 VBG pH VBG pCO2 VBG HCO3 VBG Total CO2 VBG O2 Sat (Calc) VBG Base Excess VBG Potassium Glucose Lactate FiO2 Sodium 137 Potassium 4.2 Chloride 98 Carbon Dioxide 31 Anion Gap 12 BUN 15 Creatinine 1.3 Est GFR ( Amer) > 60 Est GFR (Non-Af Amer) > 60 Random Glucose 120 H Hemoglobin A1c 5.1 Calcium 9.0 Phosphorus Magnesium 2.0 Total Bilirubin 1.0 AST 25 ALT 32 Alkaline Phosphatase 61 Total Creatine Kinase Troponin I 0.03 D Total Protein 7.4 Albumin 3.9 Globulin 3.5 Albumin/Globulin Ratio 1.1 Triglycerides 151 Cholesterol 178 LDL Cholesterol Direct 114 HDL Cholesterol 42 Vitamin B12 25-OH Vitamin D Total Folate Procalcitonin TSH 3rd Generation Venous Blood Potassium Urine Color Urine Appearance Urine pH Ur Specific [place] Urine Protein Urine Glucose (UA) Urine Ketones Urine Blood Urine Nitrate Urine Bilirubin Urine Urobilinogen Ur Leukocyte Esterase Urine RBC Urine WBC Urine Opiates Screen Urine Methadone Screen Ur Barbiturates Screen Ur Phencyclidine Scrn Ur Amphetamines Screen U Benzodiazepines Scrn U Oth Cocaine Metabols U Cannabinoids Screen 12/24/17 12/24/17 06:30 07:30 WBC RBC Hgb Hct MCV MCH MCHC RDW Plt Count MPV Gran % Lymph % (Auto) [place] % (Auto) Eos % (Auto) Baso % (Auto) Gran # Lymph # (Auto) [place] # (Auto) Eos # (Auto) Baso # (Auto) Neutrophils % (Manual) Band Neutrophils % Lymphocytes % (Manual) Monocytes % (Manual) Platelet Evaluation D-Dimer, Quantitative pO2 VBG pH VBG pCO2 VBG HCO3 VBG Total CO2 VBG O2 Sat (Calc) VBG Base Excess VBG Potassium Glucose Lactate FiO2 Sodium Potassium Chloride Carbon Dioxide Anion Gap BUN Creatinine Est GFR ( Amer) Est GFR (Non-Af Amer) Random Glucose Hemoglobin A1c Calcium Phosphorus 3.4 Magnesium Total Bilirubin AST ALT Alkaline Phosphatase Total Creatine Kinase Troponin I Total Protein Albumin Globulin Albumin/Globulin Ratio Triglycerides Cholesterol LDL Cholesterol Direct HDL Cholesterol Vitamin B12 295 25-OH Vitamin D Total < 12.8 L Folate 7.8 Procalcitonin TSH 3rd Generation Venous Blood Potassium Urine Color Urine Appearance Urine pH Ur Specific [place] Urine Protein Urine Glucose (UA) Urine Ketones Urine Blood Urine Nitrate Urine Bilirubin Urine Urobilinogen Ur Leukocyte Esterase Urine RBC Urine WBC Urine Opiates Screen Urine Methadone Screen Ur Barbiturates Screen Ur Phencyclidine Scrn Ur Amphetamines Screen U Benzodiazepines Scrn U Oth Cocaine Metabols U Cannabinoids Screen Assessment & Plan - Assessment and Plan (Free Text) Plan: Assessment right leg erythematous rash, R/O skin and skin structure infection asthma morbid obesity with BMI 46 Plan patient has been started on Unasyn and will add Doxycycline pending blood cx will monitor clinical response follow up HIV test
--- NOTE | 2017-12-25 14:09 | CP.PCM.PN ---
<Zachariah Bender - Last Filed: 12/25/17 16:25> Subjective - Date & Time of Evaluation Date of Evaluation: 12/25/17 Time of Evaluation: 14:00 - Subjective Subjective: Zachariah Bender DO PGY-1 Medicine Progress Note for Dr. Butt: Pt was seen and examined this AM at bedside. Overnight, patient had a temp of 100.0F orally. This AM, patient states that he has a new found rash on his lower R leg. He states that after his shower yesterday he noticed that his R lower leg had an area of increased redness. He denies any trauma or bug bite or anything of note to the area. He reports that his upper extremity 5th digit tingling has resolved. He currently is denying cough, sputum, runny nose. Denies urinary symptoms, chest pain, sob, neck pain, diaphoresis, nausea, vomiting, diarrhea, leg swelling. He currently denies any other acute complaints at this time. Objective - Vital Signs/Intake and Output Vital Signs (last 24 hours): Temp Pulse Resp BP Pulse Ox 97.9 F 87 20 141/91 H 96 12/25/17 12:00 12/25/17 12:00 12/25/17 12:00 12/25/17 12:00 12/25/17 06:00 Intake and Output: 12/25/17 12/25/17 06:59 18:59 Intake Total 1200 Balance 1200 - Medications Medications: Current Medications Acetaminophen (Tylenol 325mg Tab) 650 mg PO Q6H PRN PRN Reason: Headache Last Admin: 12/25/17 06:16 Dose: 650 mg Aspirin (Ecotrin) 81 mg PO DAILY [facility] Last Admin: 12/25/17 11:17 Dose: 81 mg Fluticasone Propionate (Flonase) 1 actuation NS DAILY [facility] Last Admin: 12/25/17 11:17 Dose: 1 applic Heparin Sodium (Porcine) (Heparin) 5,000 units SC Q12 [facility]; Protocol Last Admin: 12/25/17 11:17 Dose: 5,000 units Ampicillin Sodium/Sulbactam (Sodium 3 gm/ Sodium Chloride) 100 mls @ 200 mls/hr IVPB Q6 [facility]; Protocol Doxycycline Hyclate 100 mg/ (Sodium Chloride) 100 mls @ 100 mls/hr IVPB Q12 [facility]; Protocol Levalbuterol HCl (Xopenex) 1.25 mg IH [id number] PRN PRN Reason: Shortness of Breath Pantoprazole Sodium (Protonix Ec Tab) 40 mg PO 0600 [facility] Last Admin: 12/25/17 05:49 Dose: 40 mg - Labs Labs: 12/25/17 06:30 12/25/17 06:30 - Constitutional Appears: Well, Non-toxic, No Acute Distress - Head Exam Head Exam: ATRAUMATIC, NORMAL INSPECTION, NORMOCEPHALIC - Eye Exam Eye Exam: EOMI, Normal appearance, PERRL - Respiratory Exam Respiratory Exam: Clear to Ausculation Bilateral, NORMAL BREATHING PATTERN. absent: Accessory Muscle Use, Rales, Rhonchi, Wheezes, Respiratory Distress, Stridor - Cardiovascular Exam Cardiovascular Exam: RRR, +S1, +S2. absent: Gallop, Rubs - GI/Abdominal Exam GI & Abdominal Exam: Soft, Normal Bowel Sounds. absent: Tenderness - Extremities Exam Additional comments: Pt has an area of increased erythema on anterior R [place] that is tender to palpation. There is no noted area of drainage or fluctuance noted on exam. - Back Exam Back Exam: NORMAL INSPECTION. absent: CVA tenderness (L), CVA tenderness (R) - Neurological Exam Neurological Exam: Alert, Awake, Oriented x3 - Psychiatric Exam Psychiatric exam: Normal Affect, Normal Mood - Skin Skin Exam: Dry, Intact, Normal Color (except where noted above), Warm Assessment and Plan - Assessment and Plan (Free Text) Assessment: 32 year old male with PMH asthma, presents for sob, chest tightness, bilateral upper extermity numbness in 5th digit, and bilateral lower thigh weakness/numbness. He currently has new found area of potential cellulitis in R LE. Plan: 1. Chest tightness r/o ACS, vs panic attack: - trop 0.04-0.04-0.03. - EKG shows HR 104, Sinus tachycardia, T wave inversions in leads V5-V6, lead II. - Echo shows EF 62%. borderline concentric LVH. Grade 1 diastolic dysfunction. - Cardiology Dr Alexander consulted. F/u recs - currently, the symptoms have resolved. - UDS neg - TSH normal, A1C 5.1, lipid panel reviewed - LDL 114 - tele monitoring - STEFF 0 - Pt considering possibility of cath procedure on Wednesday. 2. Erythematous rash likely 2/2 Cellulitis on R LE: - Pt denies any bites, and denies trauma to the area, no area of erythema or discharge, tender to the touch. - ID on board, will continue unasyn and potentially add doxy depending on blood cx - Will continue to monitor 3. SIRS 2/2 likely viral (flu) vs bacterial etiology: - ED: tachycardic, leukocytosis, fever 100.4F - ID consulted recs appreciated - Now on Unasyn, ID may add doxy pending blood cxs - procal high - f/u urine, blood cultures, legionella, and flu are all negative at this point - f/u mycoplasma, strep pneumo - monitor 4. Headache 2/2 sinus pressure: Improving - no neck rigidity - flonase nasal spray - tylenol - will re-asses 5. B/l 5th digit tingling: Resolved - TSH normal - F/u b12, folate both wnl - vitamin D is low, will replete 6. Hx of Asthma: - Xopenex prn 7. PPX: heparin sq, protonix HHD Pt seen, examined, assessment and plan discussed with attending, Dr Daquan Bender, DO Internal Medicine Resident PGY-1 <Ann Butt - Last Filed: 12/25/17 17:03> Objective - Vital Signs/Intake and Output Vital Signs (last 24 hours): Temp Pulse Resp BP Pulse Ox 97.9 F 87 20 141/91 H 96 12/25/17 12:00 12/25/17 12:00 12/25/17 12:00 12/25/17 12:00 12/25/17 06:00 Intake and Output: 12/25/17 12/25/17 06:59 18:59 Intake Total 1200 Balance 1200 - Medications Medications: Current Medications Acetaminophen (Tylenol 325mg Tab) 650 mg PO Q6H PRN PRN Reason: Headache Last Admin: 12/25/17 06:16 Dose: 650 mg Aspirin (Ecotrin) 81 mg PO DAILY [facility] Last Admin: 12/25/17 11:17 Dose: 81 mg Fluticasone Propionate (Flonase) 1 actuation NS DAILY [facility] Last Admin: 12/25/17 11:17 Dose: 1 applic Heparin Sodium (Porcine) (Heparin) 5,000 units SC Q12 [facility]; Protocol Last Admin: 12/25/17 11:17 Dose: 5,000 units Ampicillin Sodium/Sulbactam (Sodium 3 gm/ Sodium Chloride) 100 mls @ 200 mls/hr IVPB Q6 [facility]; Protocol Doxycycline Hyclate 100 mg/ (Sodium Chloride) 100 mls @ 100 mls/hr IVPB Q12 [facility]; Protocol Last Admin: 12/25/17 14:30 Dose: 100 mls/hr Levalbuterol HCl (Xopenex) 1.25 mg IH [id number] PRN PRN Reason: Shortness of Breath Pantoprazole Sodium (Protonix Ec Tab) 40 mg PO 0600 [facility] Last Admin: 12/25/17 05:49 Dose: 40 mg - Labs Labs: 12/25/17 06:30 12/25/17 06:30 Attending/Attestation - Attestation I have personally seen and examined this patient.: Yes I have fully participated in the care of the patient.: Yes I have reviewed all pertinent clinical information, including history, physical exam and plan: Yes Notes (Text): 12/25/17 16:58 Medical record note made by the resident after discussion with my direction and input after the patient was personally seen and examined by me. I have reviewed the chart and agree that the record accurately reflects by personal performance of the history, physical exam, data review, and medical decision-making, in the course for the patient. I have also personally directed the plan of care. 32 year old male with PMH of Morbid Obesity, asthma, presents for sob, chest tightness, bilateral upper extermity numbness in 5th digit, and bilateral lower thigh weakness/numbness. Headache and Numbness has resolved. Troponins were boderline, Patient is pain free, Echo showed LVH, refusing any further cardiology work up as recommended by cardiology. Patient was found to be febrile due to right lower leg cellulitis, has elevated Procalcitonin , will start patient on Unasyn and Vancomycin and will monitor. 12/25/17 16:59 12/25/17 17:02
[2017-12-26] MEDS: Pantoprazole 40 mg EC Tab PO SCH (05:32)
[2017-12-26 05:38] LABS: BASO # 0.01 K/mm3 (0.0-2.0); BASO % 0.2 % (0.0-3.0); EOS # 0.2 (0.0-0.7); EOS % 3.5 % (1.5-5.0); GRAN # 3.39 (1.4-6.5); GRAN % 56.7 % (50.0-68.0); HEMOGLOBIN 13.8 g/dL (14.0-18.0); LYMPH # 1.9 (1.2-3.4); LYMPH % 32.2 % (22.0-35.0); MEAN CELL VOLUME 94.9 fl (80.0-105.0); MEAN CORPUSCULAR HEMOGLOBIN 31.8 pg (25.0-35.0); MEAN CORPUSCULAR HGB CONC 33.5 g/dl (31.0-37.0); MEAN PLATELET VOLUME 9.6 fl (7.0-11.0); MONO # 0.4 (0.1-0.6); MONO % 7.4 % (1.0-6.0); RBC 4.34 10^6/uL (3.5-6.1); RED CELL DISTRIBUTION WIDTH 13.1 % (11.5-14.5)
[2017-12-26 05:51] VITALS: TEMP 98.7; O2SAT 97
[2017-12-26 05:51] LABS: ALBUMIN 3.8 g/dL (3.0-4.8); ALT/SGPT 42 U/L (7-56); AST/SGOT 31 U/L (17-59); BLOOD UREA NITROGEN 14 mg/dL (7-21); CALCIUM 9.1 mg/dL (8.4-10.5); GFR NON-AFRICAN AMERICAN > 60
--- NOTE | 2017-12-26 10:56 | CT ---
Date of service: 12/26/2017 PROCEDURE: CT HEAD WITHOUT CONTRAST. HISTORY: hand numbness COMPARISON: None available. TECHNIQUE: Axial computed tomography images were obtained through the head/brain without intravenous contrast. Radiation dose: Total exam DLP = 849.11 mGy-cm. This CT exam was performed using one or more of the following dose reduction techniques: Automated exposure control, adjustment of the mA and/or kV according to patient size, and/or use of iterative reconstruction technique. FINDINGS: HEMORRHAGE: No intracranial hemorrhage. BRAIN: No mass effect or edema. No atrophy or chronic microvascular ischemic changes. Please note that MRI with diffusion imaging is more sensitive in the detection of acute ischemic event. VENTRICLES: No hydrocephalus. CALVARIUM: Unremarkable. PARANASAL SINUSES: Unremarkable as visualized. No significant inflammatory changes. MASTOID AIR CELLS: Unremarkable as visualized. No inflammatory changes. OTHER FINDINGS: None. IMPRESSION: No acute intracranial pathology identified.
[2017-12-26] MEDS: Fluticasone Nasal 50 mcg/Spray NS SCH (11:01)
[2017-12-26 13:50] VITALS: BP 150/98; PULSE 81; RESP 21
--- NOTE | 2017-12-26 17:04 | RAD ---
Date of service: 12/26/2017 PROCEDURE: Cervical Spine Radiographs. HISTORY: Pain. COMPARISON: None available. FINDINGS: BONES: The dens tip is obscured. C7 vertebral body is not demonstrated on lateral view. No acute displaced fracture identified. Straightening of the normal cervical lordosis may be related to muscle spasm or positioning. DISC SPACES: Unremarkable. SOFT TISSUES: Unremarkable. No prevertebral soft tissue swelling. OTHER FINDINGS: None. IMPRESSION: The dens tip is obscured. C7 vertebral body is not demonstrated on lateral view. No acute displaced fracture identified. Cross-sectional imaging may be considered for further evaluation if indicated. Straightening of the normal cervical lordosis may be related to muscle spasm or positioning.
--- NOTE | 2017-12-26 19:30 | CP.PCM.DIS ---
<Zachariah Bender - Last Filed: 12/26/17 19:08> Provider - Provider Date of Admission: 12/24/17 10:44 Attending physician: Kasey Llanos DO Time Spent in preparation of Discharge (in minutes): 45 Diagnosis - Discharge Diagnosis (1) Acute electrocardiogram changes Status: Acute (2) Dyspnea Status: Acute Hospital Course - Lab Results Lab Results: Micro Results 12/24/17 00:17 Blood Blood Culture - Preliminary NO GROWTH AFTER 48 HOURS 12/24/17 14:17 Urine,Clean Catch Urine Culture - Final No Growth (<1,000 CFU/ML) Most Recent Lab Values WBC 6.0 10^3/uL (4.5-11.0) D 12/26/17 05:00 RBC 4.34 10^6/uL (3.5-6.1) 12/26/17 05:00 Hgb 13.8 g/dL (14.0-18.0) L 12/26/17 05:00 Hct 41.2 % (42.0-52.0) L 12/26/17 05:00 MCV 94.9 fl (80.0-105.0) 12/26/17 05:00 MCH 31.8 pg (25.0-35.0) 12/26/17 05:00 MCHC 33.5 g/dl (31.0-37.0) 12/26/17 05:00 RDW 13.1 % (11.5-14.5) 12/26/17 05:00 Plt Count 203 10^3/uL (120.0-450.0) 12/26/17 05:00 MPV 9.6 fl (7.0-11.0) 12/26/17 05:00 Gran % 56.7 % (50.0-68.0) 12/26/17 05:00 Lymph % (Auto) 32.2 % (22.0-35.0) 12/26/17 05:00 [place] % (Auto) 7.4 % (1.0-6.0) H 12/26/17 05:00 Eos % (Auto) 3.5 % (1.5-5.0) 12/26/17 05:00 Baso % (Auto) 0.2 % (0.0-3.0) 12/26/17 05:00 Gran # 3.39 (1.4-6.5) 12/26/17 05:00 Lymph # (Auto) 1.9 (1.2-3.4) 12/26/17 05:00 [place] # (Auto) 0.4 (0.1-0.6) 12/26/17 05:00 Eos # (Auto) 0.2 (0.0-0.7) 12/26/17 05:00 Baso # (Auto) 0.01 K/mm3 (0.0-2.0) 12/26/17 05:00 Neutrophils % (Manual) 94 % (50.0-70.0) H 12/23/17 17:52 Band Neutrophils % 1 % (0-2) 12/23/17 17:52 Lymphocytes % (Manual) 1 % (22.0-35.0) L 12/23/17 17:52 Monocytes % (Manual) 4 % (1.0-6.0) 12/23/17 17:52 Platelet Evaluation Normal (NORMAL) 12/23/17 17:52 D-Dimer, Quantitative < 200 ng/mlDDU (0-243) 12/23/17 19:29 pCO2 31 mm/Hg (35-45) L 12/23/17 17:00 pO2 19 mm/Hg (30-55) L 12/24/17 00:17 HCO3 25.3 mmol/L (21-28) 12/23/17 17:00 ABG pH 7.52 (7.35-7.45) H 12/23/17 17:00 ABG Total CO2 26.3 mmol.L (22-28) 12/23/17 17:00 ABG O2 Saturation 99.4 % (95-98) H 12/23/17 17:00 ABG O2 Content 20.2 ML/dl (15-23) 12/23/17 17:00 ABG Base Excess 3.2 mmol/L (-2.0-3.0) H 12/23/17 17:00 ABG Hemoglobin 14.9 g/dL (11.7-17.4) 12/23/17 17:00 ABG Carboxyhemoglobin 2.2 % (0.5-1.5) H 12/23/17 17:00 POC ABG HHb (Measured) 0.6 % (0-5) 12/23/17 17:00 ABG Methemoglobin 1.1 % (0.0-3.0) 12/23/17 17:00 ABG O2 Capacity 20.3 mL/dl (16-24) 12/23/17 17:00 VBG pH 7.43 (7.32-7.43) 12/24/17 00:17 VBG pCO2 52.0 (40-60) 12/24/17 00:17 VBG HCO3 34.5 mmol/l (21-28) H 12/24/17 00:17 VBG Total CO2 36.1 mmol.L (22-28) H 12/24/17 00:17 VBG O2 Sat (Calc) 32.8 % (40-65) L 12/24/17 00:17 VBG Base Excess 8.5 mmol/L (0.0-2.0) H 12/24/17 00:17 VBG Potassium 3.9 mmol/L (3.6-5.2) 12/24/17 00:17 Hgb O2 Saturation 96.1 % (95.0-98.0) 12/23/17 17:00 Sodium 137.0 mmol/L (132-148) 12/24/17 00:17 Chloride 97.0 mmol/L (98-107) L 12/24/17 00:17 Glucose 123 mg/dl (75-110) H 12/24/17 00:17 Lactate 1.6 mmol/L (0.7-2.1) 12/24/17 00:17 FiO2 21.0 % 12/24/17 00:17 Sodium 140 mmol/L (132-148) 12/26/17 05:00 Potassium 4.5 mmol/L (3.6-5.0) 12/26/17 05:00 Chloride 103 mmol/L (98-107) 12/26/17 05:00 Carbon Dioxide 28 mmol/L (21-33) 12/26/17 05:00 Anion Gap 13 (10-20) 12/26/17 05:00 BUN 14 mg/dL (7-21) 12/26/17 05:00 Creatinine 1.0 mg/dl (0.8-1.5) 12/26/17 05:00 Est GFR ( Amer) > 60 12/26/17 05:00 Est GFR (Non-Af Amer) > 60 12/26/17 05:00 Random Glucose 109 mg/dL (70-110) 12/26/17 05:00 Hemoglobin A1c 5.1 % (4.2-6.5) 12/24/17 06:20 Calcium 9.1 mg/dL (8.4-10.5) 12/26/17 05:00 Phosphorus 3.8 mg/dL (2.5-4.5) 12/26/17 05:00 Magnesium 2.1 mg/dL (1.7-2.2) 12/25/17 06:30 Total Bilirubin 0.7 mg/dL (0.2-1.3) 12/26/17 05:00 AST 31 U/L (17-59) 12/26/17 05:00 ALT 42 U/L (7-56) 12/26/17 05:00 Alkaline Phosphatase 60 U/L (38-126) 12/26/17 05:00 Total Creatine Kinase 63 U/L (35-230) 12/23/17 18:51 Troponin I 0.03 ng/mL D 12/24/17 06:20 Total Protein 7.6 g/dL (5.8-8.3) 12/26/17 05:00 Albumin 3.8 g/dL (3.0-4.8) 12/26/17 05:00 Globulin 3.8 gm/dL 12/26/17 05:00 Albumin/Globulin Ratio 1.0 (1.1-1.8) L 12/26/17 05:00 Triglycerides 151 mg/dL (35-160) 12/24/17 06:20 Cholesterol 178 mg/dL (130-200) 12/24/17 06:20 LDL Cholesterol Direct 114 mg/dL (0-129) 12/24/17 06:20 HDL Cholesterol 42 mg/dL (29-60) 12/24/17 06:20 Vitamin B12 295 pg/mL (239-931) 12/24/17 07:30 25-OH Vitamin D Total < 12.8 NG/ML (30.0-100.0) L 12/24/17 06:30 Folate 7.8 ng/mL 12/24/17 07:30 Procalcitonin 3.53 NG/ML (0.19-0.49) H 12/24/17 00:17 TSH 3rd Generation 0.51 mIU/mL (0.46-4.68) 12/23/17 19:15 Venous Blood Potassium 3.9 mmol/L (3.6-5.2) 12/24/17 00:17 Urine Color Yellow (YELLOW) 12/23/17 18:13 Urine Appearance Sl cloudy (CLEAR) 12/23/17 18:13 Urine pH 7.5 (4.7-8.0) 12/23/17 18:13 Ur Specific [place] 1.020 (1.005-1.035) 12/23/17 18:13 Urine Protein Trace mg/dL (<30 mg/dL) H 12/23/17 18:13 Urine Glucose (UA) Negative mg/dL (NEGATIVE) 12/23/17 18:13 Urine Ketones Negative mg/dL (NEGATIVE) 12/23/17 18:13 Urine Blood Trace-intact (NEGATIVE) H 12/23/17 18:13 Urine Nitrate Negative (NEGATIVE) 12/23/17 18:13 Urine Bilirubin Negative (NEGATIVE) 12/23/17 18:13 Urine Urobilinogen 0.2 E.U./dL (<1 E.U./dL) 12/23/17 18:13 Ur Leukocyte Esterase Negative Alfonso/uL (NEGATIVE) 12/23/17 18:13 Urine RBC 0 - 2 /hpf (0-2) 12/23/17 18:13 Urine WBC Negative /hpf (0-6) 12/23/17 18:13 Urine Opiates Screen Negative (NEGATIVE) 12/23/17 18:13 Urine Methadone Screen Negative (NEGATIVE) 12/23/17 18:13 Ur Barbiturates Screen Negative (NEGATIVE) 12/23/17 18:13 Ur Phencyclidine Scrn Negative (NEGATIVE) 12/23/17 18:13 Ur Amphetamines Screen Negative (NEGATIVE) 12/23/17 18:13 U Benzodiazepines Scrn Negative (NEGATIVE) 12/23/17 18:13 U Oth Cocaine Metabols Negative (NEGATIVE) 12/23/17 18:13 U Cannabinoids Screen Negative (NEGATIVE) 12/23/17 18:13 HIV 1&2 Ag/Ab, 4th Gen Nonreactive (Nonreactive) 12/25/17 06:30 Influenza Typ A,B (EIA) Negative for flu a/b (NEGATIVE) 12/24/17 18:39 Ur L.pneumophila Ag Negative (NEGATIVE) 12/24/17 14:17 Ur Strep pneumoniae Ag Not detected (Not Detected) 12/24/17 14:17 - Hospital Course Hospital Course: Upon Admission: Pt is a 32 yo male, with a PMH of asthma, who presents to the ED complaining of SOB, bilateral upper extremity 5th digit numbness and sweating, and bilateral lower extremity cramping since waking up at 10am this morning. Pt reports this does not feel like his normal asthma attacks and he does not know if he has ever had a panic attack in the past. Reports anorexia, as well as nausea but denies vomiting. Pt states he tried his albuterol inhaler, but his symptoms were not relieved. These symptoms have been present all day. He reports subjective fever, sweating, heart racing, and mild chest pain on deep breathing, he describes this pain as a tightness. Denies cough or expectoration. Admits to feeling anxious but denies ever having panic attacks or being clinically diagnosed with any psychiatric history. Patient denies any recent travel or sick contact. Patient denies any drug use. A 12 point ROS was obtained and added to the HPI where appropriate. Hospital Course: Pt was worked up for ACS r/o RI. His trops were trended and were .04, .04, .03 respectively. Pt also had noted T wave inversions in leads V5-V6, lead II. Cardio was consulted and recommended cardiac cath, which the pt refused. The importance of the procedure was explained to the pt by multiple teams and the risk of delaying the procedure were also explained to the pt yet he continued to refuse. Pt was also noted to meet 2/4 SIRS criteria and had an elevated pro-natasha indicating that the pt had an underlying bacterial infection. Pts urine and CXR was clear, and then the pt noted a new found rash on his anterior leg after finishing a shower. Pt was started on unasyn and doxycycline. The pt was noted to be improving on lab work and clinically with the start of the abx. The pt then was transitioned to PO abx and was informed of the medical plan for d/c. The pt expressed understanding and agreement of the medical plan for d/c. The pt was again asked to attempt to undergo cardiac cath which the pt again refused. All questions and concerns of the pt were addressed prior to d/c. Pt was given ASA, Lipitor and Lisinopril prior to d/c to attempt to medically optimize pts cardiac status. Upon D/c: The pt was explicity given the following instructions: - For your cellulitis, Please complete the whole course of your antibiotics keflex, and doxycycline as prescribed - Please take your newly prescribed medications aspirin, lisinopril and lipitor as directed - Please follow up with the Clinic at [facility], they can be reached at . They will call you later in the week to make an appointment. When you come to the clinic for your scheduled appointment, you need to follow up on the follow: 1. This hospitalization stay 2. Monitor blood pressure 3. Since you start lisinopril, need to do blood work to recheck your kidney function. 4. Since you start lipitor, need to monitor liver function - Please begin an aerobic exercise regimen to help lower your cholesterol levels and to help reduce your future risk of serious heart conditions. - If you have any new, worsening or return of any symptoms please return to the Emergency department. Discharge Exam - Head Exam Head Exam: ATRAUMATIC, NORMAL INSPECTION, NORMOCEPHALIC - Eye Exam Eye Exam: EOMI, Normal appearance, PERRL - Respiratory Exam Respiratory Exam: NORMAL BREATHING PATTERN, UNREMARKABLE. absent: Accessory Muscle Use, Decreased Breath Sounds, Rales, Rhonchi, Wheezes, Respiratory Distress, Stridor - Cardiovascular Exam Cardiovascular Exam: RRR, +S1, +S2. absent: Gallop, Rubs - GI/Abdominal Exam GI & Abdominal Exam: Normal Bowel Sounds, Soft, Unremarkable. absent: Tenderness - Extremities Exam Extremities exam: normal capillary refill, normal inspection, pedal pulses present - Back Exam Back exam: NORMAL INSPECTION. absent: CVA tenderness (L), CVA tenderness (R) - Neurological Exam Neurological exam: Alert, Oriented x3 - Psychiatric Exam Psychiatric exam: Normal Affect, Normal Mood - Skin Skin Exam: Dry, Intact, Normal Color, Warm Discharge Plan - Discharge Medications Prescriptions: RX: Aspirin [Ecotrin] 81 mg PO DAILY 30 Days #30 tabec Atorvastatin [Lipitor] 10 mg PO DIN 30 Days #30 tab Cephalexin [cephalexin] 500 mg PO BID 7 Days #14 cap RX: Doxycycline Hyclate [Doryx] 100 mg PO BID 7 Days #14 cap RX: Lisinopril [Zestril] 10 mg PO DAILY 14 Days #14 tab - Follow Up Plan Condition: STABLE Disposition: HOME/ ROUTINE Instructions: Cellulitis and Erysipelas (Skin Infections), Shortness of Breath (Dyspnea) (DC) Additional Instructions: - For your cellulitis, Please complete the whole course of your antibiotics keflex, and doxycycline as prescribed - Please take your newly prescribed medications aspirin, lisinopril and lipitor as directed - Please follow up with the Clinic at [facility], they can be reached at . They will call you later in the week to make an appointment. When you come to the clinic for your scheduled appointment, you need to follow up on the follow: 1. This hospitalization stay 2. Monitor blood pressure 3. Since you start lisinopril, need to do blood work to recheck your kidney function. 4. Since you start lipitor, need to monitor liver function - Please begin an aerobic exercise regimen to help lower your cholesterol levels and to help reduce your future risk of serious heart conditions. - If you have any new, worsening or return of any symptoms please return to the Emergency department. <Ann Butt - Last Filed: 12/27/17 14:23> Provider - Provider Date of Admission: 12/24/17 10:44 Attending physician: Kasey Llanos, DO Hospital Course - Lab Results Lab Results: Micro Results 12/24/17 00:17 Blood Blood Culture - Preliminary NO GROWTH AFTER 3 DAYS 12/24/17 14:17 Urine,Clean Catch Urine Culture - Final No Growth (<1,000 CFU/ML) Most Recent Lab Values WBC 6.0 10^3/uL (4.5-11.0) D 12/26/17 05:00 RBC 4.34 10^6/uL (3.5-6.1) 12/26/17 05:00 Hgb 13.8 g/dL (14.0-18.0) L 12/26/17 05:00 Hct 41.2 % (42.0-52.0) L 12/26/17 05:00 MCV 94.9 fl (80.0-105.0) 12/26/17 05:00 MCH 31.8 pg (25.0-35.0) 12/26/17 05:00 MCHC 33.5 g/dl (31.0-37.0) 12/26/17 05:00 RDW 13.1 % (11.5-14.5) 12/26/17 05:00 Plt Count 203 10^3/uL (120.0-450.0) 12/26/17 05:00 MPV 9.6 fl (7.0-11.0) 12/26/17 05:00 Gran % 56.7 % (50.0-68.0) 12/26/17 05:00 Lymph % (Auto) 32.2 % (22.0-35.0) 12/26/17 05:00 [place] % (Auto) 7.4 % (1.0-6.0) H 12/26/17 05:00 Eos % (Auto) 3.5 % (1.5-5.0) 12/26/17 05:00 Baso % (Auto) 0.2 % (0.0-3.0) 12/26/17 05:00 Gran # 3.39 (1.4-6.5) 12/26/17 05:00 Lymph # (Auto) 1.9 (1.2-3.4) 12/26/17 05:00 [place] # (Auto) 0.4 (0.1-0.6) 12/26/17 05:00 Eos # (Auto) 0.2 (0.0-0.7) 12/26/17 05:00 Baso # (Auto) 0.01 K/mm3 (0.0-2.0) 12/26/17 05:00 Neutrophils % (Manual) 94 % (50.0-70.0) H 12/23/17 17:52 Band Neutrophils % 1 % (0-2) 12/23/17 17:52 Lymphocytes % (Manual) 1 % (22.0-35.0) L 12/23/17 17:52 Monocytes % (Manual) 4 % (1.0-6.0) 12/23/17 17:52 Platelet Evaluation Normal (NORMAL) 12/23/17 17:52 D-Dimer, Quantitative < 200 ng/mlDDU (0-243) 12/23/17 19:29 pCO2 31 mm/Hg (35-45) L 12/23/17 17:00 pO2 19 mm/Hg (30-55) L 12/24/17 00:17 HCO3 25.3 mmol/L (21-28) 12/23/17 17:00 ABG pH 7.52 (7.35-7.45) H 12/23/17 17:00 ABG Total CO2 26.3 mmol.L (22-28) 12/23/17 17:00 ABG O2 Saturation 99.4 % (95-98) H 12/23/17 17:00 ABG O2 Content 20.2 ML/dl (15-23) 12/23/17 17:00 ABG Base Excess 3.2 mmol/L (-2.0-3.0) H 12/23/17 17:00 ABG Hemoglobin 14.9 g/dL (11.7-17.4) 12/23/17 17:00 ABG Carboxyhemoglobin 2.2 % (0.5-1.5) H 12/23/17 17:00 POC ABG HHb (Measured) 0.6 % (0-5) 12/23/17 17:00 ABG Methemoglobin 1.1 % (0.0-3.0) 12/23/17 17:00 ABG O2 Capacity 20.3 mL/dl (16-24) 12/23/17 17:00 VBG pH 7.43 (7.32-7.43) 12/24/17 00:17 VBG pCO2 52.0 (40-60) 12/24/17 00:17 VBG HCO3 34.5 mmol/l (21-28) H 12/24/17 00:17 VBG Total CO2 36.1 mmol.L (22-28) H 12/24/17 00:17 VBG O2 Sat (Calc) 32.8 % (40-65) L 12/24/17 00:17 VBG Base Excess 8.5 mmol/L (0.0-2.0) H 12/24/17 00:17 VBG Potassium 3.9 mmol/L (3.6-5.2) 12/24/17 00:17 Hgb O2 Saturation 96.1 % (95.0-98.0) 12/23/17 17:00 Sodium 137.0 mmol/L (132-148) 12/24/17 00:17 Chloride 97.0 mmol/L (98-107) L 12/24/17 00:17 Glucose 123 mg/dl (75-110) H 12/24/17 00:17 Lactate 1.6 mmol/L (0.7-2.1) 12/24/17 00:17 FiO2 21.0 % 12/24/17 00:17 Sodium 140 mmol/L (132-148) 12/26/17 05:00 Potassium 4.5 mmol/L (3.6-5.0) 12/26/17 05:00 Chloride 103 mmol/L (98-107) 12/26/17 05:00 Carbon Dioxide 28 mmol/L (21-33) 12/26/17 05:00 Anion Gap 13 (10-20) 12/26/17 05:00 BUN 14 mg/dL (7-21) 12/26/17 05:00 Creatinine 1.0 mg/dl (0.8-1.5) 12/26/17 05:00 Est GFR ( Amer) > 60 12/26/17 05:00 Est GFR (Non-Af Amer) > 60 12/26/17 05:00 Random Glucose 109 mg/dL (70-110) 12/26/17 05:00 Hemoglobin A1c 5.1 % (4.2-6.5) 12/24/17 06:20 Calcium 9.1 mg/dL (8.4-10.5) 12/26/17 05:00 Phosphorus 3.8 mg/dL (2.5-4.5) 12/26/17 05:00 Magnesium 2.1 mg/dL (1.7-2.2) 12/25/17 06:30 Total Bilirubin 0.7 mg/dL (0.2-1.3) 12/26/17 05:00 AST 31 U/L (17-59) 12/26/17 05:00 ALT 42 U/L (7-56) 12/26/17 05:00 Alkaline Phosphatase 60 U/L (38-126) 12/26/17 05:00 Total Creatine Kinase 63 U/L (35-230) 12/23/17 18:51 Troponin I 0.03 ng/mL D 12/24/17 06:20 Total Protein 7.6 g/dL (5.8-8.3) 12/26/17 05:00 Albumin 3.8 g/dL (3.0-4.8) 12/26/17 05:00 Globulin 3.8 gm/dL 12/26/17 05:00 Albumin/Globulin Ratio 1.0 (1.1-1.8) L 12/26/17 05:00 Triglycerides 151 mg/dL (35-160) 12/24/17 06:20 Cholesterol 178 mg/dL (130-200) 12/24/17 06:20 LDL Cholesterol Direct 114 mg/dL (0-129) 12/24/17 06:20 HDL Cholesterol 42 mg/dL (29-60) 12/24/17 06:20 Vitamin B12 295 pg/mL (239-931) 12/24/17 07:30 25-OH Vitamin D Total < 12.8 NG/ML (30.0-100.0) L 12/24/17 06:30 Folate 7.8 ng/mL 12/24/17 07:30 Procalcitonin 3.53 NG/ML (0.19-0.49) H 12/24/17 00:17 TSH 3rd Generation 0.51 mIU/mL (0.46-4.68) 12/23/17 19:15 Venous Blood Potassium 3.9 mmol/L (3.6-5.2) 12/24/17 00:17 Urine Color Yellow (YELLOW) 12/23/17 18:13 Urine Appearance Sl cloudy (CLEAR) 12/23/17 18:13 Urine pH 7.5 (4.7-8.0) 12/23/17 18:13 Ur Specific [place] 1.020 (1.005-1.035) 12/23/17 18:13 Urine Protein Trace mg/dL (<30 mg/dL) H 12/23/17 18:13 Urine Glucose (UA) Negative mg/dL (NEGATIVE) 12/23/17 18:13 Urine Ketones Negative mg/dL (NEGATIVE) 12/23/17 18:13 Urine Blood Trace-intact (NEGATIVE) H 12/23/17 18:13 Urine Nitrate Negative (NEGATIVE) 12/23/17 18:13 Urine Bilirubin Negative (NEGATIVE) 12/23/17 18:13 Urine Urobilinogen 0.2 E.U./dL (<1 E.U./dL) 12/23/17 18:13 Ur Leukocyte Esterase Negative Alfonso/uL (NEGATIVE) 12/23/17 18:13 Urine RBC 0 - 2 /hpf (0-2) 12/23/17 18:13 Urine WBC Negative /hpf (0-6) 12/23/17 18:13 Urine Opiates Screen Negative (NEGATIVE) 12/23/17 18:13 Urine Methadone Screen Negative (NEGATIVE) 12/23/17 18:13 Ur Barbiturates Screen Negative (NEGATIVE) 12/23/17 18:13 Ur Phencyclidine Scrn Negative (NEGATIVE) 12/23/17 18:13 Ur Amphetamines Screen Negative (NEGATIVE) 12/23/17 18:13 U Benzodiazepines Scrn Negative (NEGATIVE) 12/23/17 18:13 U Oth Cocaine Metabols Negative (NEGATIVE) 12/23/17 18:13 U Cannabinoids Screen Negative (NEGATIVE) 12/23/17 18:13 HIV 1&2 Ag/Ab, 4th Gen Nonreactive (Nonreactive) 12/25/17 06:30 Influenza Typ A,B (EIA) Negative for flu a/b (NEGATIVE) 12/24/17 18:39 Ur L.pneumophila Ag Negative (NEGATIVE) 12/24/17 14:17 Ur Strep pneumoniae Ag Not detected (Not Detected) 12/24/17 14:17 Attending/Attestation - Attestation I have personally seen and examined this patient.: Yes I have fully participated in the care of the patient.: Yes I have reviewed all pertinent clinical information, including history, physical exam and plan: Yes Notes (Text): 12/27/17 14:19 Medical record note made by the resident after discussion with my direction and input after the patient was personally seen and examined by me. I have reviewed the chart and agree that the record accurately reflects by personal performance of the history, physical exam, data review, and medical decision-making, in the course for the patient. I have also personally directed the plan of care. 32 year old male with PMH of Morbid Obesity, asthma, presents for sob, chest tightness, bilateral upper extermity numbness in 5th digit, and bilateral lower thigh weakness/numbness. Headache and Numbness has resolved.Troponins were boderline, Patient is pain free, Echo showed LVH, refusing any further cardiology work up as recommended by cardiology.Patient has been started on lisinopril as blood pressure was running high and he also LVH. Patient was found to be febrile due to right lower leg cellulitis, has elevated Procalcitonin , he was started on Unasyn and Vancomycin and doxycycline.He has responded well.His redness and swelling of leg is decreased. He will be discharged home on oral keflex and doxycycline. Management plan was discussed in detail with patient. Education was provided.
== END 2017-12-26 16:48 | disposition home or self-care (01) | DRG 603 ==
LOC: ED 16:37 → ERH 20:43 → 2RNO 23:43 → OBSVTOIN 12-24 10:44
PROVIDERS: ADMIT Hospitalist; ATTEND Hospitalist
DX: L03.115 Cellulitis of right lower limb (principal); R65.10 Systemic inflammatory response syndrome (SIRS) of non-infectious origin without acute organ dysfunction; Z68.42 Body mass index [BMI] 45.0-49.9, adult; R07.1 Chest pain on breathing; E66.01 Morbid (severe) obesity due to excess calories; J45.909 Unspecified asthma, uncomplicated; R51 Headache; L53.9 Erythematous condition, unspecified; R21 Rash and other nonspecific skin eruption; R94.31 Abnormal electrocardiogram [ECG] [EKG]